=== PATIENT | female | born 2000 | race Caucasian/White ===

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

== ENCOUNTER 2021-03-05 12:25 | Inpatient (IN) ==
[2021-03-05 13:01] LABS: Bacteria,Urine Few per hpf (None-Few); Bilirubin,Urine Negative (Negative); Blood,Urine Negative (Negative); Clarity,Urine Clear (Clear); Color,Urine Yellow (Yellow); Glucose,Urine (UA) Normal (Normal); Ketones,Urine Negative (Negative); Leukocyte Esterase,Urine Negative (Negative); Mucus,Urine Many per lpf (None-Few); Nitrite,Urine Negative (Negative); PH,Urine 6.5 pH Units (5.0-8.0); Protein,Urine 30 mg/dL (Neg-Trace); Specific Gravity,Urine > 1.030 (1.010-1.025); Squamous Epithelial Cell,Urine Few per hpf (None-Few); Urobilinogen,Urine Normal (Normal); WBC,Urine 0-3 per hpf (0-3)
[2021-03-05] MEDS ORDERED: Acetaminophen 325 MG TABLET PO ONE (13:14)
[2021-03-05 13:25] LABS: Basophils % 0.6 %; Eosinophils % 0.6 %; Hematocrit 38.2 % (35.3-44.9); Hemoglobin 12.2 g/dL (11.5-15.4); Immature Granulocytes % 0.2 % (0-4); Lymphocytes % 30.9 %; Mean Corpuscular HGB Conc 31.9 g/dL (31.6-35.5); Mean Corpuscular Hemoglobin 27.7 pg (28.0-33.3); Mean Corpuscular Volume 86.8 fL (83.0-100.0); Mean Platelet Volume 11.4 fL (9.4-12.4); Monocytes # 0.5 K/mcL (0.0-1.3); Monocytes % 7.3 %; Platelet Count 269 K/mcL (140-400); Red Cell Distribution Width 13.1 % (11.5-14.5); Segmented Neutrophils % 60.4 %; White Blood Count 6.5 K/mcL (4.3-11.1)
[2021-03-05 14:00] LABS: Acetaminophen < 10 mcg/mL (10-20); Alanine Aminotransferase 8 Units/L (7-52); Albumin 4.7 g/dL (3.5-5.7); Albumin/Globulin Ratio 1.4 (1.1-2.2); Alkaline Phosphatase 45 Units/L (34-104); Aspartate Amino Transferase 10 Units/L (13-39); BUN/Creatinine Ratio 18 (6-26); Bilirubin,Direct 0.1 mg/dL (0.0-0.2); Bilirubin,Indirect 0.5 mg/dL (0.0-1.0); Bilirubin,Total 0.6 mg/dL (0.3-1.0); Blood Urea Nitrogen 11 mg/dL (6-20); Calcium 9.5 mg/dL (8.6-10.3); Carbon Dioxide 24 mEq/L (23-29); Chloride 105 mEq/L (98-107); Ethanol < 10 mg/dL (Less than 10); Globulin 3.4 g/dL (2.4-3.5); Glucose 98 mg/dL (70-105); Osmolality,Calculated 285 (280-300); Potassium 3.9 mEq/L (3.5-5.1); Salicylate < 2.5 mg/dL (15.0-30.0); Sodium 138 mEq/L (136-145); Thyroid Stimulating Hormone 1.008 mcIU/mL (0.340-5.600); Total Protein 8.1 g/dL (6.4-8.9); eGFR For African Americans > 60 (> 60); eGFR For Non-African Americans > 60 (> 60)
[2021-03-05 14:05] LABS: Adenovirus Not Detected (Not Detect); Bordetella Pertussis Not Detected (Not Detect); Chlamydophila pneumoniae Not Detected (Not Detect); Coronavirus 229E Not Detected (Not Detect); Coronavirus HKU1 Not Detected (Not Detect); Coronavirus NL63 Not Detected (Not Detect); Coronavirus OC43 Not Detected (Not Detect); Human Metapneumovirus Not Detected (Not Detect); Human Rhinovirus/Enterovirus Not Detected (Not Detect); Influenza A Subtype 2009 H1 Not Detected (Not Detect); Influenza B Not Detected (Not Detect); Mycoplasma pneumoniae Not Detected (Not Detect); Parainfluenza Virus 1 Not Detected (Not Detect); Parainfluenza Virus 2 Not Detected (Not Detect); Parainfluenza Virus 3 Not Detected (Not Detect); Parainfluenza Virus 4 Not Detected (Not Detect); Respiratory Syncytial Virus Not Detected (Not Detect); SARS-CoV-2 Not Detected (Not Detect)
[2021-03-05] MEDS ORDERED: Tdap (Boostrix) Vaccine 0.5 ML SYRINGE IM ONE (14:10)
[2021-03-05 14:25] LABS: Amphetamine Screen,Urine Negative ng/mL (Cutoff=1000); Barbiturate Screen,Urine Negative ng/mL (Cutoff=200); Benzodiazepines Screen,Urine Negative ng/mL (Cutoff=200); Cannabinoid Screen,Urine Negative ng/mL (Cutoff = 50); Cocaine Screen,Urine Negative ng/mL (Cutoff= 300); Opiate Screen,Urine Negative ng/mL (Cutoff=300); Phencyclidine Screen,Urine Negative ng/mL (Cutoff=25)
[2021-03-05] MEDS: hydrOXYzine pamoate 25 MG CAPSULE PO PRN (21:06)
[2021-03-05] MEDS: traZODone 50 MG TABLET PO PRN (21:06)
[2021-03-06] MEDS: Acetaminophen 325 MG TABLET PO PRN ×2 (12:48→18:59)
[2021-03-06] MEDS: hydrOXYzine pamoate 25 MG CAPSULE PO PRN ×2 (14:25→21:49)
[2021-03-06] MEDS: traZODone 50 MG TABLET PO PRN (21:49)
[2021-03-06] MEDS: ARIPiprazole 5 MG TABLET PO SCH (21:49)
[2021-03-07] MEDS: hydrOXYzine pamoate 25 MG CAPSULE PO PRN (11:19)
[2021-03-07] MEDS ORDERED: haloperidoL 5 MG TABLET PO PRN (13:02)
[2021-03-07] MEDS ORDERED: Haloperidol Lactate 5 MG/ML VIAL IM PRN (13:02)
[2021-03-07] MEDS ORDERED: *HR* LORazepam 1 MG TABLET PO PRN (13:02)
[2021-03-07] MEDS ORDERED: *HR* LORazepam 2 MG/ML VIAL IM PRN (13:02)
[2021-03-07] MEDS ORDERED: MOM Conc 10 ML UD.LIQ PO PRN (13:02)
[2021-03-07] MEDS ORDERED: Mag Hydrox/Al Hydrox/Simeth 30 ML UDC PO PRN (13:02)
[2021-03-07] MEDS: traZODone 50 MG TABLET PO PRN (22:01)
[2021-03-07] MEDS: ARIPiprazole 5 MG TABLET PO SCH (22:01)
[2021-03-08] MEDS: traZODone 50 MG TABLET PO PRN (21:33)
[2021-03-08] MEDS: ARIPiprazole 5 MG TABLET PO SCH (21:33)
[2021-03-09] MEDS: traZODone 50 MG TABLET PO PRN (20:40)
[2021-03-09] MEDS: ARIPiprazole 5 MG TABLET PO SCH (20:40)
[2021-03-10] MEDS: hydrOXYzine pamoate 25 MG CAPSULE PO PRN (13:14)
[2021-03-10] MEDS: ARIPiprazole 5 MG TABLET PO SCH (20:32)
[2021-03-10] MEDS ORDERED: Melatonin 3 MG TABLET PO SCH (21:00)
[2021-03-11 09:36] VITALS: BP 124/79
== END 2021-03-11 11:55 | disposition home or self-care (01) | DRG 753 ==
LOC: EMEROOARM 12:25 → 1ANU 15:45
PROVIDERS: ADMIT Psychiatry & Neurology Psychiatry; ATTEND Psychiatry & Neurology Psychiatry